=== PATIENT | male | born 1955 | race African-American/Black ===

== ENCOUNTER 2016-08-22 18:56 | Emergency (ER) | payer MEDICARE, MEDICAID ==
[~2016-08-22] VITALS: Ht 170.2 cm; Wt 67.0 kg
[~2016-08-22 18:56] MED LIST: OXYC5TAB2 PO; SULF1TAB24 PO
[2016-08-22 18:57] VITALS: BP 126/75
[2016-08-22] MEDS ORDERED: FAMOTIDINE 20 MG TABLET PO ONE (19:30)
[2016-08-22] MEDS ORDERED: ONDANSETRON ODT 4 MG PO ONE (19:30)
[2016-08-22] MEDS ORDERED: ONDANSETRON ODT 4 MG ONE (19:38)
[2016-08-22] MEDS ORDERED: FAMOTIDINE 20 MG TABLET ONE (19:38)
[2016-08-22 19:55] LABS: BLOOD UREA NITROGEN 13 mg/dL (7-18)
== END 2016-08-22 20:37 | disposition home or self-care (01) ==
LOC: ED 20:00
DX: R11.2 Nausea with vomiting, unspecified (principal); Z72.89 Other problems related to lifestyle; M41.9 Scoliosis, unspecified
CPT/HCPCS: 36415; 80048; 85025; 99284; Q0162

== ENCOUNTER 2019-01-18 12:58 | Emergency (ER) | payer MEDICARE ==
[~2019-01-18] VITALS: Ht 170.2 cm; Wt 64.0 kg
[~2019-01-18 12:58] MED LIST changes: +CLIN300C8 PO; +IBUP-1223 PO
[2019-01-18 13:03] VITALS: BP 102/60
--- NOTE | 2019-01-18 13:41 | NUR ---
Patient/Caregiver given discharge instructions and they have confirmed that they understand the instructions. Patient ambulatory with steady gait. PT LEFT WITH ALL PERSONAL BELONGINGS.
== END 2019-01-18 13:44 | disposition home or self-care (01) ==
LOC: ED 13:40
DX: H60.321 Hemorrhagic otitis externa, right ear (principal); H60.11 Cellulitis of right external ear; R51 Headache; M19.90 Unspecified osteoarthritis, unspecified site; Z72.9 Problem related to lifestyle, unspecified
CPT/HCPCS: 99283

== ENCOUNTER 2020-08-05 15:55 | Emergency (ER) | payer MEDICARE ==
[~2020-08-05] VITALS: Ht 170.2 cm; Wt 65.2 kg
[~2020-08-05 15:55] MED LIST changes: -CLIN300C8 PO; +CLIN300C9 PO; +SULF-23 PO; -SULF1TAB24 PO
[2020-08-05 16:26] LABS: BASOPHILS % (AUTO) 0 % (0-1); EOSINOPHILS % (AUTO) 0 % (1-7); LYMPHOCYTES % (AUTO) 5 % (22-44); MEAN CORPUSCULAR HGB CONC 33.8 g/dL (33.2-36.2); MEAN PLATELET VOLUME 8.7 fL (7.4-10.4); MONOCYTES % (AUTO) 5 % (2-9); NEUTROPHILS % (AUTO) 90 % (42-75); PLATELET COUNT 188 x10^3/uL (130-400); RED BLOOD COUNT 5.08 x10^6/uL (4.38-5.82); RED CELL DISTRIBUTION WIDTH 13.5 % (9.4-14.8)
--- NOTE | 2020-08-05 16:30 | NUR ---
PT AMBULATED TO ROOM FROM LOBBY. PT CO PAIN AND BURING WITH URINATION AND FEELS LIKE HE CANNOT EMPTY HIS BLADDER, STARTING YESTERDAY. BLADDER SCAN REVEALED 350ML POST VOIDING. PT ALSO COMPLAINS OF SEVERE HEADACHE. PT DENIES ANY FEVER OR BLOOD IN URINE.
[2020-08-05 16:36] LABS: ALANINE AMINOTRANSFERASE 27 U/L (12-78); ALBUMIN 3.5 g/dL (3.4-5.0); ANION GAP 8 mmol/L (5-15); CALCIUM 8.8 mg/dL (8.5-10.1); CHLORIDE 104 mmol/L (98-107); CREATININE 1.41 mg/dL (0.7-1.3)
[2020-08-05 16:39] LABS: ALKALINE PHOSPHATASE 74 U/L (45-117); BILIRUBIN,TOTAL 0.9 mg/dL (0.2-1.0); TOTAL PROTEIN 8.5 g/dL (6.4-8.2)
[2020-08-05 16:41] LABS: MICROSCOPIC INDICATED
--- NOTE | 2020-08-05 17:25 | NUR ---
BREAK RV. PT RESTING IN BED, AWAITING CT. NEEDS ADDRESSED. CONT TO MONITOR.
--- NOTE | 2020-08-05 17:58 | NUR ---
PT TO CT
--- NOTE | 2020-08-05 18:55 | NUR ---
PT AMBULATE TO RESTROOM
--- NOTE | 2020-08-05 19:45 | NUR ---
PAGAN CATHETER PLACED PER ORDER. 300ML URINE RETURN. PT TOLERATED PROCEDURE WELL.
[2020-08-05 20:00] VITALS: BP 120/72
[2020-08-05] MEDS ORDERED: CIPROFLOXACIN 500 MG TABLET PO ONE (20:30)
[2020-08-05] MEDS ORDERED: CIPROFLOXACIN 500 MG TABLET ONE (20:35)
--- NOTE | 2020-08-05 20:51 | NUR ---
DISCHARGE INSTRUCTIONS REVIEWED WITH PT. CATHETER CARE DISCUSSED. PT ABLE TO VERBALIZE CATHETER CARE. ALL QUESTIONS ANSWERED AT THIS TIME.
== END 2020-08-05 21:02 | disposition home or self-care (01) ==
LOC: ED 18:28
DX: N41.0 Acute prostatitis (principal)
CPT/HCPCS: 36415; 51702; 74176; 80053; 81001; 85025; 87086; 99284